=== PATIENT | female | born 1980 | race Two or more races ===

== ENCOUNTER → 2024-10-11 | Outpatient (CLI) | payer BC, SELFPAY ==
--- NOTE | 2024-10-11 16:16 | XR_ITS ---
Examination: Thoracic spine 3 views Technique one AP lateral coned lateral upper dorsal spine 3 views Exam date and time: October 11, 2024 1630 hours INDICATIONS: Upper back pain beginning 2 months ago. FINDINGS: Satisfactory alignment thoracic vertebral bodies Mild diffuse thoracic degenerative disc disease No fracture Moderate degenerative disc disease C5-C6 IMPRESSION: Mild diffuse thoracic degenerative disc disease
== END | disposition home or self-care (01) ==
PROVIDERS: PCP Family Medicine; Referring Provider Family Medicine; Visit Provider Family Medicine
DX: M51.34 Other intervertebral disc degeneration, thoracic region (principal)
CPT/HCPCS: 72072